=== PATIENT | female | born 1995 | race Two or more races ===

== ENCOUNTER 2018-07-01 10:23 | Observation (INO) | payer SELFPAY ==
[2016-10-23 17:45] VITALS: BP 130/77
[2018-07-01 11:15] LABS: AMNIO PT NEGATIVE
[2018-07-01 11:18] LABS: BILIRUBIN,URINE NEGATIVE (NEG); CLARITY,URINE CLEAR; COLOR,URINE YELLOW; NITRITE,URINE NEGATIVE (NEG); PROTEIN,URINE NEGATIVE (NEG-TRACE); UROBILINOGEN,URINE 0.2 mg/dL (0.2 mg/dL)
[2018-07-01 11:23] LABS: SQUAMOUS EPITHELIAL CELL,UR MOD /LPF
[2018-07-01 11:24] LABS: BACTERIA,URINE FEW /HPF (0-FEW); RBC,URINE OCC /HPF (0-2); WBC,URINE 0 /HPF (0-4)
== END 2018-07-01 11:48 | disposition home or self-care (01) ==
LOC: 3 SO LND 10:23
PROVIDERS: ADMIT Obstetrics & Gynecology; ATTEND Obstetrics & Gynecology
DX: O42.92 Full-term premature rupture of membranes, unspecified as to length of time between rupture and onset of labor (principal); O62.9 Abnormality of forces of labor, unspecified; O36.8130 Decreased fetal movements, third trimester, not applicable or unspecified; Z3A.37 37 weeks gestation of pregnancy
CPT/HCPCS: 36415; 81001; 84112; G0379

== ENCOUNTER 2021-05-05 09:16 | Emergency (ER) | payer SELFPAY ==
[~2021-05-05] VITALS: Ht 157.5 cm; Wt 70.9 kg
[2021-05-05 09:16] VITALS: BP 130/47
[2021-05-05] MEDS ORDERED: OFLO5DRO7 RIGHT EAR (10:14)
--- NOTE | 2021-05-05 10:27 | PHYS DOC ---
Past Medical History Past Surgical History: No Surgical History Smoking Status: Never Smoker General Adult EDM: Chief Complaint: FOREIGNBODY EAR HPI: HPI: Patient is a 25 year old female who presents with a right bug in her ear. She believes it called into her ear last night. She felt that moving earlier, but has not felt it moving in the past couple of hours. Complains of pain near the ear. Denies any fever, chills, or other recent symptoms. reports decreased hearing out of that ear. Review of Systems: Review of Systems: Constitutional: Denies fever or chills. [] Eyes: Denies change in visual acuity. [] HENT: complains of pain in right ear and decreased hearing. Respiratory: Denies cough or shortness of breath. [] Heart Score: C/O Chest Pain: No Allergies: Allergies: Allergies Coded Allergies Type Severity Reaction Last Updated Verified No Known Drug Allergies 05/05/21 No Physical Exam: PE: Constitutional: Well developed, well nourished, tearful HENT: R ear with some auditory canal irritation and small amount of bleeding. There is an insect lodged in the canal. The TM is not initially visible at all. The insect appears to be . A small piece of the insect was removed and the remainder is too close to the TM for removal with available instruments. The TM is now partially visualized and appears perforated. Eyes: bilateral conjunctival injection Neck: Normal range of motion, no tenderness, supple, no stridor. [] Skin: Warm, dry, no erythema, no rash. [] Neurologic: Alert and oriented X 3, normal motor function, normal sensory function, no focal deficits noted. [] Psychologic: Affect normal, judgement normal, mood normal. [] Current Patient Data: Vital Signs: Vital Signs Date Time Temp Pulse Resp B/P (MAP) Pulse Ox O2 Delivery O2 Flow Rate FiO2 05/05/21 09:16 98.6 80 16 130/47 (74) 99 Room Air 98.6 EKG: EKG: [] Radiology/Procedures: Radiology/Procedures: []Procedure: foreign body removal Indication: insect lodged in R external auditory canal Patient was positioned and the insect was visualized with an otic speculum and was grasped with alligator forceps. only a portion of the insect was removed. The remaining insect was too deep in the canal for retrieval with available resources. The TM appear to be perforated. Course & Med Decision Making: Course & Med Decision Making Pertinent Labs and Imaging studies reviewed. (See chart for details) Patient is a 25 yo F who presents with insect in her R external auditory canal and evidence of TM perforation. Only a small portion of the inset was removed. Further attempts were stopped. The patient will be given ofloxacin otic drops and referred for close outpatient ENT follow up as we do not have ENT available in house. Dragon Disclaimer: Dragon Disclaimer: This electronic medical record was generated, in whole or in part, using a voice recognition dictation system. Departure Departure Impression: Primary Impression: Perforated tympanic membrane Additional Impression: Acute foreign body of ear Disposition: HOME / SELF CARE / HOMELESS Condition: STABLE Referrals: NO PCP (PCP) MARGARITA HOUSE MD Go to your appointment at 1:30 PM Additional Instructions: You still have some of the bug in your ear. Your ear drum may be ruptured as well This requires that you take an antibiotic drop in your ear. You will also need to see a specialist that can help remove the remaining piece of insect. I have scheduled an appointment for you with Dr. Margarita House. Please arrive by 1:30 PM [address] [place] [address] Scripts Ofloxacin (OFLOXACIN) 5 Ml Drops 5 DROP RIGHT EAR BID, #5 ML 0 Refills Prov: AFSHIN FERREIRA MD 05/05/21 AFSHIN FERREIRA MD May 05, 2021 10:27
== END 2021-05-05 10:46 | disposition home or self-care (01) ==
LOC: ER 09:16
DX: T16.1XXA Foreign body in right ear, initial encounter (principal); H72.91 Unspecified perforation of tympanic membrane, right ear; X58.XXXA Exposure to other specified factors, initial encounter; Y93.89 Activity, other specified; Y92.89 Other specified places as the place of occurrence of the external cause; Y99.8 Other external cause status
CPT/HCPCS: 69200; 99284